=== PATIENT | female | born 1990 | race African-American/Black ===

== ENCOUNTER 2018-11-11 18:43 | Emergency (ER) | payer OTHER ==
[2018-11-11 19:26] LABS: Bilirubin Small (Negative); Blood, Urine Negative (Negative); Clarity Slightly Cloudy (Clear); Glucose, Urine (Dipstick) Negative (Negative); Leukocyte Negative (Negative); Nitrite Negative (Negative); Protein, Urine (Dipstick) 30 mg/dL (Neg-Trace); Urobilinogen 0.2 mg/dL (0.2-1.0); pH, Urine 5.5 (5.0-9.0)
[2018-11-11 19:28] LABS: Bacteria/HPF 1+ HPF (None Seen); Hyaline Casts/LPF 0-3 HYALINE CAST LPF (0-3 Hyaline); RBC/HPF 0-3 HPF (0-3); WBC/HPF 0-3 HPF (0-3)
[2018-11-11 20:01] LABS: #Basophils 0.1 thou/uL (0.0-0.2); #Eosinphils 0.1 thou/uL (0.0-0.7); #Lymphocytes 2.5 thou/uL (1.20-3.40); #Monocytes 0.9 thou/uL (0.11-0.59); #Neutrophils 5.9 thou/uL (1.40-6.50); %Basophils 1.2 % (0.0-1.0); %Eosinophils 1.6 % (0.0-10.0); %Lymphocytes 26.3 % (21.0-51.0); %Monocytes 9.2 % (0.0-10.0); %Neutrophils 61.7 % (42.0-75.0); Hemoglobin 12.3 g/dL (12.0-16.0); Mean Corpuscular HGB CONC 32.3 g/dL (32.0-36.0); Mean Corpuscular Hemoglobin 26.6 pg (27.0-31.0); Mean Corpuscular Volume 82.4 fL (78.0-98.0); Mean Platelet Volume 8.2 fL (7.4-10.4); Platelet Count 205 thou/uL (130-400); RBC Distribution Width 12.8 % (11.5-14.5); Red Blood Cell (RBC) Count 4.64 mill/uL (4.20-5.40); White Blood Cell (WBC) Count 9.5 thou/uL (4.8-10.8)
[2018-11-11 20:08] LABS: ALT (SGPT) 17 U/L (8-55); AST (SGOT) 16 U/L (5-34); Alkaline Phosphatase 72 U/L (40-150); Anion Gap 14 mmol/L (10-20); BUN (Urea Nitrogen) 11 mg/dL (7.0-18.7); Bilirubin, Total 0.3 mg/dL (0.2-1.2); Calc. Creatinine Clearance 0 mL/min (70-130); Calcium 9.4 mg/dL (7.8-10.44); Carbon Dioxide 23 mmol/L (22-29); Chloride 103 mmol/L (98-107); Estimated GFR-MDRD 89; Globulin 3.2 g/dL (2.4-3.5); Glucose 93 mg/dL (70-105); Potassium 3.7 mmol/L (3.5-5.1); Protein, Total 7.2 g/dL (6.0-8.3); Sodium 136 mmol/L (136-145)
--- NOTE | 2018-11-11 22:39 | ULT ---
PELVIC ULTRASOUND 11/11/18 HISTORY: Pelvic pain. FINDINGS: Multiple transabdominal and endovaginal sonographic images of the pelvis are obtained. The uterus measures 12.4 cm x 6.9 cm x 7.3 cm. There is a fluid collection seen in the endometrial ca nal which contains both a pole and a yolk sac. Garber-rump length measures 1 cm consistent with mean gestational age by ultrasound of 7 weeks with YUE on 06/30/19. However, this does represent a di screpancy in the gestational age by the last menstrual period of 5 weeks and 2 days. Cardiac doppler evaluation demonstrates heart tones with a heart rate of 150 beats per mi nute. There are no findings to suggest a subchronic hemorrhage. The ovaries are visualized on transabdominal images and demonstrate a normal sonographic appearance. The right ovary measures 4.1 cm x 2.2 cm x 2.5 cm with the left ovary measuring 3.3 cm x 2.5 cm x 3 c m. Doppler evaluation of each ovary with spectral analysis and color flow evaluation demonstrates art erial flow in each ovary. No free fluid is seen in the cul-de-sac. There is a curvilinear echogenic structure seen adjacent to the right of the uterus which may potenti ally represent the patient's known right Essure device. Echogenic focus to suggest Essure device on t he left is not seen. Comparison is made with prior abdominal radiograph on 10/30/16, and only a single right sided Essure metallic device was seen and was not present on the left. IMPRESSION: Single intrauterine gestation with heart tones documented. The estimated gestational age by ult rasound is 7 weeks and 0 days. This does represent a discrepancy in the gestational age by the last m enstrual period of 5 weeks and 2 days. POS: [facility]
== END 2018-11-11 22:25 | disposition home or self-care (01) ==
LOC: SCSER 18:43
DX: O99.89 Other specified diseases and conditions complicating pregnancy, childbirth and the puerperium (principal); R10.30 Lower abdominal pain, unspecified; Z79.899 Other long term (current) drug therapy
CPT/HCPCS: 36415; 76856; 80053; 81003; 81015; 84702; 85025; 87086; 99284

== ENCOUNTER 2019-01-26 10:40 | Emergency (ER) | payer OTHER ==
[2019-01-26 11:41] LABS: #Eosinphils 0.2 thou/uL (0.0-0.7); #Lymphocytes 2.8 thou/uL (1.20-3.40); #Monocytes 0.7 thou/uL (0.11-0.59); #Neutrophils 3.3 thou/uL (1.40-6.50); %Basophils 0.4 % (0.0-1.0); %Eosinophils 2.3 % (0.0-10.0); %Lymphocytes 40.1 % (21.0-51.0); %Monocytes 9.6 % (0.0-10.0); %Neutrophils 47.5 % (42.0-75.0); Hemoglobin 13.3 g/dL (12.0-16.0); Mean Corpuscular HGB CONC 33.3 g/dL (32.0-36.0); Mean Corpuscular Hemoglobin 27.3 pg (27.0-31.0); Mean Corpuscular Volume 82.1 fL (78.0-98.0); Platelet Count 212 thou/uL (130-400); RBC Distribution Width 12.2 % (11.5-14.5); Red Blood Cell (RBC) Count 4.87 mill/uL (4.20-5.40)
--- NOTE | 2019-01-26 11:58 | RAD ---
Radiograph right ankle 3 views: HISTORY: 28-year-old female status post acute traumatic injury due to fall FINDINGS: Ankle mortise is congruent. Talar dome is maintained. No fracture or subluxation. IMPRESSION: No fracture
[2019-01-26 11:59] LABS: ALT (SGPT) 23 U/L (8-55); AST (SGOT) 21 U/L (5-34); Albumin 4.1 g/dL (3.5-5.0); Alkaline Phosphatase 87 U/L (40-150); Anion Gap 11 mmol/L (10-20); BUN (Urea Nitrogen) 11 mg/dL (7.0-18.7); Bilirubin, Total 0.4 mg/dL (0.2-1.2); Calc. Creatinine Clearance 0 mL/min (70-130); Calcium 9.5 mg/dL (7.8-10.44); Carbon Dioxide 26 mmol/L (22-29); Chloride 102 mmol/L (98-107); Estimated GFR-MDRD 79; Globulin 3.2 g/dL (2.4-3.5); Glucose 90 mg/dL (70-105); Potassium 3.6 mmol/L (3.5-5.1); Protein, Total 7.3 g/dL (6.0-8.3); Sodium 135 mmol/L (136-145)
[2019-01-26 12:06] LABS: BHCG - Serum Negative (NEGATIVE); Pregs Control Background? CLEAR/WHITE (CLR/WHITE); Pregs Control Bar Appear? YES (CONTROL BAR)
== END 2019-01-26 13:30 | disposition home or self-care (01) ==
LOC: ERS 10:40
DX: R55 Syncope and collapse (principal)
CPT/HCPCS: 36415; 80053; 84703; 85025; 93005

== ENCOUNTER 2019-04-01 19:30 | Outpatient (CLI) | payer OTHER | END 2019-04-01 19:31 | disposition home or self-care (01) | LOC: SLEEPLAB 19:30 | PROVIDERS: ATTEND Internal Medicine | DX: G47.33 Obstructive sleep apnea (adult) (pediatric) (principal); R53.83 Other fatigue; R06.83 Snoring; G47.00 Insomnia, unspecified; G47.10 Hypersomnia, unspecified; F41.9 Anxiety disorder, unspecified | CPT/HCPCS: 95810 ==

== ENCOUNTER 2020-07-20 12:14 | Outpatient (CLI) | payer MEDICAID ==
--- NOTE | 2020-07-20 12:28 | RAD ---
Exam: Left knee 4 views: HISTORY: Left knee pain COMPARISON: None FINDINGS: Degenerative and osteoarthrosis change. Minimal heterogeneous sclerosis and cortical thickening of the distal femoral metaphysis having more the appearance of old trauma. No evidence for fracture, dislocation, or other significant acute osseous abnormality. IMPRESSION: No significant acute process.
== END 2020-07-20 12:15 | disposition home or self-care (01) ==
LOC: BICRAD 12:14
PROVIDERS: ATTEND Internal Medicine
DX: M25.562 Pain in left knee (principal)

== ENCOUNTER 2021-12-05 08:06 | Outpatient (CLI) | payer BC, OTHER | END 2021-12-05 08:07 | disposition home or self-care (01) | LOC: SCSMRI 08:06 | PROVIDERS: ATTEND Internal Medicine | DX: G43.909 Migraine, unspecified, not intractable, without status migrainosus (principal) | CPT/HCPCS: 70551 ==

== ENCOUNTER 2021-12-27 10:30 | Outpatient (CLI) | payer OTHER | END 2021-12-27 10:31 | disposition home or self-care (01) | LOC: DTY/OP 10:30 | PROVIDERS: ATTEND Surgery | DX: E66.01 Morbid (severe) obesity due to excess calories (principal) | CPT/HCPCS: 97802 ==